=== PATIENT | female | born 1985 | race Caucasian/White ===

== ENCOUNTER 2020-11-18 19:37 | Emergency (ER) | payer BC, OTHER ==
[~2020-11-18] VITALS: Ht 167.6 cm; Wt 75.0 kg
[~2020-11-18 19:37] MED LIST: IBUP80TA PO; MAPA500T17 PO; PRENTAB9 PO
--- OUTSIDE RECORDS SUMMARY | 2020-11-18 19:47 | CCD ---
Author Author [facility] Organization [facility] Address Unknown Phone Unavailable Care Team Providers Care Credit And Loan Collections Supervisor Name Role Phone [facility], MJAIN Unavailable Unavailable Torres, Breanna MANAGER PROJECT Unavailable Unavailable Torres, Breanna MANAGER PROJECT Unavailable Unavailable Torres, Breanna MANAGER PROJECT Unavailable Unavailable Torres, Breanna MANAGER PROJECT Unavailable Unavailable Torres, Breanna MANAGER PROJECT Unavailable Unavailable Torres, Breanna MANAGER PROJECT Unavailable Unavailable Torres, Breanna MANAGER PROJECT Unavailable Unavailable Torres, Breanna MANAGER PROJECT Unavailable Unavailable Torres, Breanna MANAGER PROJECT Unavailable Unavailable Torres, Breanna MANAGER PROJECT Unavailable Unavailable Torres, Breanna MANAGER PROJECT Unavailable Unavailable Re-disclosure Warning The records that you are about to access may contain information from federally-assisted alcohol or drug abuse programs. If such information is present, then the following federally mandated warning applies: This information has been disclosed to you from records protected by federal confidentiality rules (42 CFR part 2). The federal rules prohibit you from making any further disclosure of this information unless further disclosure is expressly permitted by the written consent of the person to whom it pertains or as otherwise permitted by 42 CFR part 2. A general authorization for the release of medical or other information is NOT sufficient for this purpose. The Federal rules restrict any use of the information to criminally investigate or prosecute any alcohol or drug abuse patient.The records that you are about to access may contain highly sensitive health information, the redisclosure of which is protected by Article 27-F of the [facility] Public Health law. If you continue you may have access to information: Regarding HIV / AIDS; Provided by facilities licensed or operated by the [facility] Office of Mental Health; or Provided by the [facility] Office for People With Developmental Disabilities. If such information is present, then the following [facility] mandated warning applies: This information has been disclosed to you from confidential records which are protected by state law. State law prohibits you from making any further disclosure of this information without the specific written consent of the person to whom it pertains, or as otherwise permitted by law. Any unauthorized further disclosure in violation of state law may result in a fine or fdc sentence or both. A general authorization for the release of medical or other information is NOT sufficient authorization for further disc losure. Family History Family Member Name Family Member Gender Family Member Status Date o f Status Description Data Source(s) Unknown Unknown Problem [facility] ([facility]) Encounters Encounter Providers Location Date Indications Data Source(s ) Outpatient Attender: [facility] 03/16/2020 08:15:00 AM EDT [facility] Outpatient Attender: [facility] 11/30/2019 09:01:09 PM EST [facility] Outpatient Attender: Breanna laureano 10/28/2019 12:15:00 PM EST [facility] ([facility] Outpatient Attender: [facility] 09/22/2019 02:00:05 PM [facility] Insurance Providers Payer name Policy type / Coverage type Policy ID Covered constitution party ID Covered constitution party's relationship to young Policy Young Plan Information [place] 302/307 [id number] [place] Plan P UNAVAILABLE S UNAVAI LABLE [facility] Hidden[employer] Commercial [id number] Self [id number] [place] 306/806 [id number] HU2 [id number] [place]CE[place] BCBS P [id number] P [id number] [id number] [employer] BCBS P UNAVAILABLE P UNAV AILABLE [id number] Results ID Date Data Source [id number] 09/22/2019 07:53:17 AM [facility] Patient History Medical History:noneSurg ical History:wisdom teethSocial/Personal History: Smoking Status: never smokerChief Complaint: Routine CleaningVisit Type: ExamCurrent Problems: Dental caries (ICD-521.00) (VNQ77-M98.9)Dental caries (ICD-521.00) (QQO30-D21.9)Problem list reviewed during this update.No known medications.No known allergies.Past Medical History:(reviewed - no changes required) none Dental Chart: Procedures:Type - CDT Code - Description B - (D0120) Periodic oral evaluation - established patient (Performed by Blu Vidales DDS) B - (D1110) Prophylaxis, adult (Performed by Aylin Andrews RDH) Chart Notes:petty (Sep 22 2019 1:20PM): CC: CleaningRMH: No changes; unremarkable historyAllergies: None. Smoking Status: NeverBP: Not dueEO/IO: Oral cancer screening performed - no abnormalites noted; normal mucosa with no white or raised patches. No lymphadenopathy. No poping or clicking of the TMJ. Pt has good oral health and good oral hygiene. No caries per doc. Pt has light calc, trace plaque, and light bleeding. Behavior: Very compliantTX: Adult prophy and exam by Dr. Quiles: Spoke to pt about brushing and flossing. NV: Biannual exam and [id number]: Pt works at [employer] and has a daughter. Aylin Andrews RDH by petty (09/22/2019 1:20 PM): ; td (Sep 22 2019 1:59PM): [facility]). CC: none. Reviewed Xrays. Exam: no caries detected. OCS: WNL, IO/ EO completed, No significant hard findings upon clinical exam Pt was cooperative.OHI givenReferral: N/ANV:recallAylin Andrews RDH by td (09/22/2019 1:59 PM): Tooth Notes and Watches:- Tooth 2 Note: distolingual aspect of the PFM crown is brokenAylin Andrews RDH by petty (12/29/2018 10:44 AM): Assessment & Plan Name Value Range Interpretation Code Description Data Kamini rce(s) Supporting Document(s) Procedure Vital Signs ID Date Data Source UNK Name Value Range Interpretation Code Description Data Source(s) Body mass index (BMI) [Ratio] 27.4 kg/m2 27.4 k g/m2 MEDENT ([facility]) Body height 66 [in_i] 66 [in_i] MEDENT ([facility]) 5'6" Body weight 170.00 [lb_av] 170.00 [lb_av] MEDEN T ([facility], [facility]) Body temperature 99.9 [degF] 99.9 [degF] MEDENT ([facility], [facility]) Oxygen saturation in Arterial blood by Pulse oximetry 99 % 99 % [facility]) Respiratory rate 16 /min 16 /min [facility] ( [facility]) Heart rate 90 /min 90 /min MEDENT ([facility]) Diastolic blood pressure 78 mm[Hg] 78 mm[Hg] MEDENT ([facility], [facility]) Systolic blood pressure 114 mm[Hg] 114 mm[Hg] M EDENT ([facility], [facility])
--- OUTSIDE RECORDS SUMMARY | 2020-11-18 20:45 | CCD ---
Author Author [facility] Organization [facility] Address Unknown Phone Unavailable Care Team Providers Care Fiscal Agent Name Role Phone [facility], MJAIN Unavailable Unavailable Torres, Breanna PRESIDENT Unavailable Unavailable Torres, Breanna PRESIDENT Unavailable Unavailable Torres, Breanna PRESIDENT Unavailable Unavailable Torres, Breanna PRESIDENT Unavailable Unavailable Torres, Breanna PRESIDENT Unavailable Unavailable Torres, Breanna PRESIDENT Unavailable Unavailable Torres, Breanna PRESIDENT Unavailable Unavailable Torres, Breanna PRESIDENT Unavailable Unavailable Torres, Breanna PRESIDENT Unavailable Unavailable Torres, Breanna PRESIDENT Unavailable Unavailable Torres, Breanna PRESIDENT Unavailable Unavailable Re-disclosure Warning The records that [...] is protected by Article 27-F of the [facility] Public Health law. If you continue you may have access to information: Regarding HIV / AIDS; Provided by facilities licensed or operated by the [facility] Office of Mental Health; or Provided by the [facility] Office for People With Developmental Disabilities. If such information is present, then the following [facility] mandated warning applies: This information has [...] law may result in a fine or skilled nursing sentence or both. A general authorization for the release of medical or other information is NOT sufficient authorization for further disc losure. Family History Family Member Name Family Member Gender Family Member Status Date o f Status Description Data Source(s) Unknown Unknown Problem [facility] ([facility]) Encounters Encounter Providers Location Date Indications Data Source(s ) Outpatient Attender: [facility] 03/16/2020 08:15:00 AM EDT [facility] Outpatient Attender: [facility] 11/30/2019 09:01:09 PM EST [facility] Outpatient Attender: Breanna laureano 10/28/2019 12:15:00 PM EST [facility] ([facility]) Outpatient Attender: [facility] 09/22/2019 02:00:05 PM [facility] Insurance Providers Payer name Policy type / Coverage type Policy ID Covered constitution party ID Covered constitution party's relationship to young Policy Young Plan Information [facility] [id number] HU2 [id number] [employer] [place] [id number] HU2 [id number] [place] P[place] 302/307 [id number] HU2 [id number] [place] Plan P UNAVAILABLE S UNAVAI LABLE [facility] [place] Commercial [id number] Self [id number] [place] 306/806 [id number] HU2 [id number] EXCELLUS BCBS P [id number] P [id number] [id number] EXCELLUS BCBS P UNAVAILABLE P UNAV AILABLE [id number] Results ID Date Data Source [id number] 09/22/2019 07:53:17 AM [facility] Patient History Medical History:noneSurg ical History:wisdom teethSocial/Personal History: Smoking Status: never smokerChief Complaint: Routine CleaningVisit Type: ExamCurrent Problems: Dental caries (ICD-521.00) (XBR51-R42.9)Dental caries (ICD-521.00) (PFA40-P79.9)Problem list reviewed during this update.No known medications.No [...] brushing and flossing. NV: Biannual exam and [id number]: Pt works at [employer] and has a daughter. Aylin Andrews RDH by petty (09/22/2019 1:20 PM): ; td (Sep 22 2019 1:59PM): [facility]). CC: none. Reviewed Xrays. Exam: no caries detected. OCS: WNL, IO/ EO completed, No significant hard findings upon clinical exam Pt was cooperative.OHI givenReferral: N/ANV:recallFobaldomero FIGUEROA, Aylin by td (09/22/2019 1:59 PM): Tooth Notes and Watches:- Tooth 2 Note: distolingual aspect of the PFM crown is brokenAyiln Andrews RDH by petty (12/29/2018 10:44 AM): Assessment & Plan Name Value Range Interpretation Code Description Data Kamini rce(s) Supporting Document(s) Procedure Vital Signs ID Date Data Source UNK Name Value Range Interpretation Code Description Data Source(s) Body mass index (BMI) [Ratio] 27.4 kg/m2 27.4 k g/m2 [facility] ([facility]) Body height 66 [in_i] 66 [in_i] MEDENT ([facility]) 5'6" Body weight 170.00 [lb_av] 170.00 [lb_av] MEDEN T ([facility], [facility]) Body temperature 99.9 [degF] 99.9 [degF] MEDENT ([facility], [facility]) Oxygen saturation in Arterial blood by Pulse oximetry 99 % 99 % MEDENT ([facility], [facility]) Respiratory rate 16 /min 16 /min MED[facility] ( [facility], [facility]) Heart rate 90 /min 90 /min MED[facility] ([facility]) Diastolic blood pressure 78 mm[Hg] 78 mm[Hg] MEDENT ([facility], [facility]) Systolic blood pressure 114 mm[Hg] 114 mm[Hg] M EDENT ([facility], [facility])
--- NOTE | 2020-11-18 20:57 | REPVR ---
PROCEDURE INFORMATION: Exam: XR Right Ankle Exam date and time: 11/18/2020 8:15 PM Age: 35 years old Clinical indication: Pain; Ankle; Right; Additional info: Fall TECHNIQUE: Imaging protocol: XR Right ankle. Views: 3 or more views. COMPARISON: No relevant prior studies available. FINDINGS: Bones/joints: Transverse fractures through the tip of the medial malleolus. Small plantar calcaneal spur. Soft tissues: Soft tissue edema at the level of the lateral malleolus. IMPRESSION: 1. Soft tissue edema at the level of the lateral malleolus. 2. Transverse fractures through the tip of the medial malleolus. Electronically signed by: Oneil Miller On 11/18/2020 20:57:05 PM
[2020-11-18 21:56] VITALS: BP 146/79
== END 2020-11-18 21:58 | disposition home or self-care (01) ==
LOC: M ED 19:37
DX: S82.424A Nondisplaced transverse fracture of shaft of right fibula, initial encounter for closed fracture (principal); X58.XXXA Exposure to other specified factors, initial encounter; Y92.830 Public park as the place of occurrence of the external cause; Y93.89 Activity, other specified; Y99.9 Unspecified external cause status